=== PATIENT | female | born 1975 | race Caucasian/White ===

== ENCOUNTER → 2024-05-09 06:18 | Day surgery (SDC) | payer OTHER, SELFPAY | LOC: GI 06:18 | PROVIDERS: ATTENDING PHYSICIAN Internal Medicine | DX: Z12.11 Encounter for screening for malignant neoplasm of colon (principal); K62.89 Other specified diseases of anus and rectum; K64.4 Residual hemorrhoidal skin tags | CPT/HCPCS: G0121 ==

== ENCOUNTER → 2024-08-12 14:05 | Outpatient (REF) | payer OTHER, SELFPAY | LOC: HWWDC 14:05 | PROVIDERS: ATTENDING PHYSICIAN Obstetrics & Gynecology; FAMILY PHYSICIAN Physician Assistant Medical | DX: Z12.31 Encounter for screening mammogram for malignant neoplasm of breast (principal) | CPT/HCPCS: 77063; 77067 ==